=== PATIENT | male | born 1990 | race African-American/Black ===

== ENCOUNTER 2019-04-05 06:18 | Emergency (ER) | payer MEDICAID ==
[~2019-04-05] VITALS: Ht 182.9 cm; Wt 88.0 kg
[2019-04-05] MEDS ORDERED: ACETAMINOPHEN 325MG TABLET PO ONE (07:45)
[2019-04-05] MEDS ORDERED: LIDOCAINE HCL 1% 20ML VIAL (Pyxis) INJ INFIL ONE (08:30)
[2019-04-05] MEDS ORDERED: CEFTRIAXONE SODIUM 250 MG/VIAL IM ONE (08:30)
[2019-04-05] MEDS ORDERED: AZITHROMYCIN 500 MG TABLET PO ONE (08:30)
[2019-04-05 08:59] VITALS: BP 137/92
[2019-04-05 09:29] LABS: CLARITY URINE CLEAR (CLEAR); COLOR URINE YELLOW (YELLOW); KETONES URINE NEGATIVE (NEGATIVE); LEUKOCYTE ESTERASE URINE 1+ (NEGATIVE); NITRITE URINE NEGATIVE (NEGATIVE); OCCULT BLOOD URINE NEGATIVE (NEGATIVE); PH URINE 5.5 (4.5-8.0); PROTEIN URINE NEGATIVE (NEGATIVE); SPECIFIC GRAVITY URINE 1.028 (1.005-1.030)
== END 2019-04-05 09:05 | disposition home or self-care (01) ==
LOC: ER 06:18
DX: N45.3 Epididymo-orchitis (principal); Z90.49 Acquired absence of other specified parts of digestive tract
CPT/HCPCS: 76870; 81003; 93976; 96372; 99284; J0696; J3490

== ENCOUNTER 2019-08-05 22:08 | Emergency (ER) | payer MEDICAID ==
[~2019-08-05] VITALS: Ht 182.9 cm; Wt 86.0 kg
[2019-08-05 22:33] VITALS: BP 132/87
[2019-08-06] MEDS ORDERED: IBUPROFEN 600MG TABLET PO ONE (00:15)
[2019-08-06 02:45] LABS: CHLORIDE 105 mEq/L (98-107)
[2019-08-06] MEDS ORDERED: IOHEXOL-300 100 ML BOTTLE ONE (04:02)
[2019-08-06] MEDS ORDERED: CLINDAMYCIN HCL 150MG CAPSULE PO ONE (04:15)
== END 2019-08-06 04:32 | disposition home or self-care (01) ==
LOC: ER 22:08
DX: R22.0 Localized swelling, mass and lump, head (principal); K02.9 Dental caries, unspecified; Z87.828 Personal history of other (healed) physical injury and trauma; Z98.890 Other specified postprocedural states
CPT/HCPCS: 36415; 70487; 80053; 99284; Q9967

== ENCOUNTER 2020-04-18 15:00 | Emergency (ER) | payer MEDICAID ==
[~2020-04-18] VITALS: Ht 182.9 cm; Wt 95.0 kg
[2020-04-18] MEDS ORDERED: KETOROLAC 30MG/ML VIAL IV STA (15:16)
[2020-04-18] MEDS ORDERED: SODIUM CHLORIDE 0.9% 1,000 ML IV ONE (15:30)
[2020-04-18] MEDS ORDERED: KETOROLAC 30MG/ML VIAL IV NR (15:45)
[2020-04-18 16:07] LABS: BASOPHILS % 0.4 % (0.0-2.0); HEMATOCRIT. 44.5 % (42.0-52.0); HEMOGLOBIN. 15.2 g/dL (14.0-18.0); LYMPHOCYTES % 12.7 % (20.0-50.0); MEAN CORPUSCULAR HEMOGLOBIN 29.6 pg (28.0-32.0); MEAN PLATELET VOLUME 9.3 fl (7.4-10.4); MONOCYTES % 8.3 % (2.0-8.0); NEUTROPHILS % 78.6 % (40.0-76.0); PLATELET 154 x1000/uL (130-400); RED BLOOD CELL COUNT 5.12 mill/uL (4.7-6.1); RED CELL DISTRIBUTION WIDTH 12.9 % (11.6-14.6)
[2020-04-18 16:13] LABS: INR 1.1; PROTHROMBIN TIME 12.2 sec (9.6-11.0)
[2020-04-18 16:15] LABS: CHLORIDE 99 mEq/L (98-107)
[2020-04-18] MEDS ORDERED: ACETAMINOPHEN 325MG TABLET PO STA (16:19)
[2020-04-18] MEDS ORDERED: CEFTRIAXONE 1 G PREMIX 50 ML IV ONE (16:30)
[2020-04-18] MEDS ORDERED: LACTATED RINGERS 1,000 ML IV SCH (18:30)
[2020-04-18 22:02] LABS: CLARITY URINE CLOUDY (CLEAR); COLOR URINE YELLOW (YELLOW); KETONES URINE NEGATIVE (NEGATIVE); LEUKOCYTE ESTERASE URINE 3+ (NEGATIVE); NITRITE URINE NEGATIVE (NEGATIVE); OCCULT BLOOD URINE 2+ (NEGATIVE); PH URINE 5.5 (4.5-8.0); PROTEIN URINE 1+ (NEGATIVE); SPECIFIC GRAVITY URINE 1.012 (1.005-1.030)
[2020-04-18] MEDS ORDERED: DOXY100C2 MT (22:29)
[2020-04-18] MEDS ORDERED: CEPH500C2 MT (22:29)
[2020-04-18 23:09] VITALS: BP 136/84
== END 2020-04-18 23:36 | disposition home or self-care (01) ==
LOC: ER 15:00
DX: N12 Tubulo-interstitial nephritis, not specified as acute or chronic (principal); A41.9 Sepsis, unspecified organism; R65.20 Severe sepsis without septic shock; L02.01 Cutaneous abscess of face; N45.1 Epididymitis; F12.10 Cannabis abuse, uncomplicated; F15.10 Other stimulant abuse, uncomplicated; F17.200 Nicotine dependence, unspecified, uncomplicated; Z98.890 Other specified postprocedural states
CPT/HCPCS: 36415; 74176; 76770; 80053; 81003; 83605; 83690; 85025; 85610; 87040; 87077; 87086; 87186; 96361; 96365; 96375; 99285; J0696; J1885; J7030; Z7610; 96366; 96367

== ENCOUNTER 2020-09-11 03:52 | Emergency (ER) | payer MEDICAID ==
[~2020-09-11] VITALS: Ht 182.9 cm; Wt 90.0 kg
[~2020-09-11 03:52] MED LIST: CEPH500C2 MT; DOXY100C2 MT
[2020-09-11] MEDS ORDERED: KETOROLAC 60MG/2ML VIAL IM STA (04:41)
[2020-09-11 07:25] LABS: CLARITY URINE CLEAR (CLEAR); COLOR URINE YELLOW (YELLOW); KETONES URINE NEGATIVE (NEGATIVE); LEUKOCYTE ESTERASE URINE 2+ (NEGATIVE); NITRITE URINE NEGATIVE (NEGATIVE); OCCULT BLOOD URINE NEGATIVE (NEGATIVE); PH URINE 5.5 (4.5-8.0); PROTEIN URINE NEGATIVE (NEGATIVE); SPECIFIC GRAVITY URINE 1.027 (1.005-1.030)
[2020-09-11 08:00] VITALS: BP 132/72
[2020-09-11] MEDS ORDERED: DOXY100C2 MT (08:00)
[2020-09-11] MEDS ORDERED: CEFTRIAXONE SODIUM 1 G/VIAL IM ONE (08:00)
[2020-09-11] MEDS ORDERED: IBUP-2029 MT (08:01)
== END 2020-09-11 08:42 | disposition home or self-care (01) ==
LOC: ER 03:52
DX: N45.1 Epididymitis (principal); F12.10 Cannabis abuse, uncomplicated; F15.10 Other stimulant abuse, uncomplicated; Z87.828 Personal history of other (healed) physical injury and trauma; Z98.890 Other specified postprocedural states
CPT/HCPCS: 76870; 81003; 87086; 93976; 96372; 99284; J0696; J1885

== ENCOUNTER 2024-02-17 20:01 | Emergency (ER) | payer MEDICAID ==
[~2024-02-17] VITALS: Ht 182.9 cm; Wt 100.0 kg
[~2024-02-17 20:01] MED LIST changes: -DOXY100C2 MT; +DOXY100C5 MT; +IBUP-2029 MT
[2024-02-17 20:32] VITALS: O2SAT 98
[2024-02-17] MEDS ORDERED: IBUP-2029 MT (22:55)
[2024-02-17] MEDS ORDERED: AMOX1TAB16 MT (22:55)
[2024-02-17] MEDS ORDERED: BO1 TP (22:55)
[2024-02-17] MEDS: TETANUS, DIPHTHERIA, PERTUSSIS VAC/PF 0.5ML (>10YR OLD) IM ONE (23:13)
[2024-02-18 00:05] VITALS: BP 135/85; PULSE 75; RESP 20; TEMP 36.78072; O2SAT 100
== END 2024-02-18 00:05 | disposition home or self-care (01) ==
LOC: ER 20:01
DX: S71.152A Open bite, left thigh, initial encounter (principal); R21 Rash and other nonspecific skin eruption; F12.10 Cannabis abuse, uncomplicated; F15.10 Other stimulant abuse, uncomplicated; Z79.899 Other long term (current) drug therapy; W54.0XXA Bitten by dog, initial encounter; Y93.89 Activity, other specified; Y92.89 Other specified places as the place of occurrence of the external cause; Y99.8 Other external cause status
CPT/HCPCS: 90471; 90715; 99283